=== PATIENT | female | born 1975 | race Caucasian/White ===

== ENCOUNTER 2025-06-21 09:32 | Emergency (ER) | payer BC, SELFPAY ==
[2025-06-21 09:34] VITALS: BP 179/90
[2025-06-21 10:04] LABS: Hematocrit 37.9 % (37.0-47.0); Hemoglobin 12.6 g/dL (12.0-16.0); Mean Corp Hgb Conc. 33.2 g/dL (33.0-37.0); Mean Corpuscular Volume 90.5 fL (81.0-99.0); Nucleated Red Blood Cells % 0 %; Platelet Count 256 10^3/uL (130-400); Red Cell Dist. Width 12.4 % (11.5-14.5)
[2025-06-21 10:26] LABS: ALT (SGPT) 12 U/L (0-35); AST (SGOT) 20 U/L (14-36); Albumin 4.4 g/dl (3.5-5.0); Alkaline Phosphatase 63 U/L (38-126); Blood Urea Nitrogen 15 mg/dl (7-17); Calcium 9.0 mg/dl (8.4-10.2); Carbon Dioxide 24 mmol/L (22-30); Chloride 107 mmol/L (98-107); Glucose 101 mg/dl (70-99); Potassium 4.5 mmol/L (3.5-5.1); Sodium 138 mmol/L (135-145); Total Protein 7.3 g/dl (6.3-8.2); eGFR > 60.00
[2025-06-21 10:31] LABS: Troponin I < 0.012 ng/ml
[2025-06-21 11:15] VITALS: BP 152/87
[2025-06-21 12:00] VITALS: BP 135/81
[2025-06-21] MEDS: NSS 500 IV (12:28)
[2025-06-21] MEDS: ZOFRAN 4 MG IV (12:28)
[2025-06-21] MEDS: ANTIVERT 25 MG PO (12:28)
--- NOTE | 2025-06-21 12:35 | ED.GENMED ---
History of Present Illness
<Mary Gray DO, Resident - Last Filed: 06/21/25 15:36>
General
Chief Complaint: Dizziness
Time Seen by Provider: 06/21/25 11:28
History of Present Illness
History of Present Illness:
Patient is a 49-year-old female past medical history of hypothyroidism on Synthroid, presenting with vertigo. Patient started experiencing vertigo symptoms 2 days ago, unable to turn her head to the side without feeling debilitatingly dizzy and
nauseous. Of note patient was recently started on Bactrim for Bartholin cyst that burst. Patient also recently was started on hydrochlorothiazide by her primary care doc for water retention. Patient has not taken the hydrochlorothiazide for the
last 3 days because the increased urination was irritating her Bartholin gland cyst. Patient has had vertigo once before and this feels very similar.
<Asya Arredondo DO - Last Filed: 06/21/25 13:43>
History of Present Illness
History of Present Illness:
Patient is a 49-year-old female past medical history of hypothyroidism on Synthroid, presenting with vertigo. Patient started experiencing vertigo symptoms 2 days ago, unable to turn her head to the side without feeling debilitatingly dizzy and
nauseous. Of note patient was recently started on Bactrim for Bartholin cyst that burst. Patient also recently was started on hydrochlorothiazide by her primary care doc for water retention. Patient has not taken the hydrochlorothiazide for the
last 3 days because the increased urination was irritating her Bartholin gland cyst. Patient has had vertigo once before and this feels very similar.
Review of Systems
<Mary Gray DO, Resident - Last Filed: 06/21/25 15:36>
Review of Systems
Constitutional: Reports no symptoms
EENT: Reports runny nose
Respiratory: Reports other (Shortness of breath 2 days. Denies shortness of breath now)
Cardiac: Reports no symptoms
ABD/GI: Reports nausea and diarrhea
: Reports other (Decreased frequency of urination)
Musculoskeletal: Reports no symptoms
Skin: Reports no symptoms
Neurological: Reports dizzy
Endocrine: Reports no symptoms
Hematologic/Lymphatic: Reports no symptoms
Psychiatric: Reports no symptoms
Phy Exam
<Mary Gray DO, Resident - Last Filed: 06/21/25 15:36>
General Physical Exam
General Presentation: mild distress
General age: appears stated age
General Skin: warm and dry
General Habitus: normal
General Mental: alert
Eye Exam
Eye Exam: EOMI and other (Did not appreciate any nystagmus)
Cardiovascular Exam
Cardiovascular Exam: regular rate/rhythm
Heart Sounds: normal
Pulmonary Exam
Pulmonary Exam: lungs clear and no respiratory distress
Gastrointestinal Exam
Gastrointestinal Exam: normal bowel sounds, non tender, soft and non distended
Neurological Exam
Neurological Exam: alert and oriented x3
Skin Exam
Skin Exam: normal color and warm/dry
Psychiatric Exam
Psychiatric Exam: normal mood/affect
Course
<Mary Gray DO, Resident - Last Filed: 06/21/25 15:36>
Orders/Labs/Results
Orders:
Orders
06/21/25 09:39
Electrocardiogram (*1) Urgent
Reason for Study: Vertigo / Dizzy
EKG- Treatment ONCE
06/21/25 09:43
Complete Blood Count/With Diff Urgent
Comprehensive Metabolic Panel Urgent
Troponin I Urgent
06/21/25 12:05
Meclizine [Antivert] 25 mg PO NOW STA
Ondansetron Injectable [Zofran] 4 mg IV NOW STA
06/21/25 12:10
0.9% Sodium Chloride 500 ml [Nss] 500 ml IV BOLUS
06/21/25 12:21
Urinalysis Reflex To Culture Urgent
Date Specimen was Collected: 06/21/25
Time Specimen was Collected: 12:01
Urine Microscopic Reflex Cult Urgent
06/21/25 12:28
PT Consult [Pt Eval And Treat] Stat
Treatment: Vertigo
Activity Level: As Tolerated
Abnormal Lab Results
06/21/25 06/21/25
09:43 12:21
WBC 4.4 L 10^3/uL
(4.8-10.8)
RBC 4.19 L 10^6/uL
(4.20-5.40)
Immature Gran % 0.7 H %
(0-0.5)
Neutrophils % 38.7 L %
(42.2-75.2)
Monocytes % 9.9 H %
(1.7-9.3)
Glucose 101 H mg/dl
(70-99)
Ur Occult Blood Reflex 2+ A
(Negative)
06/21/25 09:43
06/21/25 09:43
Vital Signs
Initial and Last Documented VS:
Initial Vital Signs
Temp Pulse Resp BP Pulse Ox
98.4 F 61 18 179/90 100
06/21/25 09:34 06/21/25 09:34 06/21/25 09:34 06/21/25 09:34 06/21/25 09:34
Last Documented Vital Signs
Temp Pulse Resp BP Pulse Ox
98.4 F 62 14 124/80 100
06/21/25 09:34 06/21/25 14:03 06/21/25 14:03 06/21/25 14:03 06/21/25 12:45
<Asya Arredondo DO - Last Filed: 06/21/25 13:43>
Orders/Labs/Results
Orders:
Orders
06/21/25 09:39
Electrocardiogram (*1) Urgent
Reason for Study: Vertigo / Dizzy
EKG- Treatment ONCE
06/21/25 09:43
Complete Blood Count/With Diff Urgent
Comprehensive Metabolic Panel Urgent
Troponin I Urgent
06/21/25 12:05
Meclizine [Antivert] 25 mg PO NOW STA
Ondansetron Injectable [Zofran] 4 mg IV NOW STA
06/21/25 12:10
0.9% Sodium Chloride 500 ml [Nss] 500 ml IV BOLUS
06/21/25 12:21
Urinalysis Reflex To Culture Urgent
Date Specimen was Collected: 06/21/25
Time Specimen was Collected: 12:01
Urine Microscopic Reflex Cult Urgent
06/21/25 12:28
PT Consult [Pt Eval And Treat] Stat
Treatment: Vertigo
Activity Level: As Tolerated
Abnormal Lab Results
06/21/25 06/21/25
09:43 12:21
WBC 4.4 L 10^3/uL
(4.8-10.8)
RBC 4.19 L 10^6/uL
(4.20-5.40)
Immature Gran % 0.7 H %
(0-0.5)
Neutrophils % 38.7 L %
(42.2-75.2)
Monocytes % 9.9 H %
(1.7-9.3)
Glucose 101 H mg/dl
(70-99)
Ur Occult Blood Reflex 2+ A
(Negative)
06/21/25 09:43
06/21/25 09:43
Vital Signs
Initial and Last Documented VS:
Initial Vital Signs
Temp Pulse Resp BP Pulse Ox
98.4 F 61 18 179/90 100
06/21/25 09:34 06/21/25 09:34 06/21/25 09:34 06/21/25 09:34 06/21/25 09:34
Last Documented Vital Signs
Temp Pulse Resp BP Pulse Ox
98.4 F 62 14 124/80 100
06/21/25 09:34 06/21/25 14:03 06/21/25 14:03 06/21/25 14:03 06/21/25 12:45
Consults
<Mary Gray DO, Resident - Last Filed: 06/21/25 15:36>
Consults
Consults for patient: Physical Therapy (Consulted physical therapy for vertigo)
<Mary Gray DO, Resident - Last Filed: 06/21/25 15:36>
MDM/Problems Addressed
Differential Diagnosis Includes:
Vertigo
MDM/Problems Addressed:
EKG shows sinus bradycardia. Troponin negative. Will start patient on 500 cc normal saline bolus, Zofran and meclizine. Will attempt Nino maneuver. Also put consult in for physical therapy.
PT saw patient and agreed that the patient likely has benign paroxysmal positional vertigo. PT tried Nino maneuver treating the right side. PT says patient is feeling a little better, but difficult to tell if it is from the maneuver or the
meclizine. PT suggested outpatient follow-up with vestibular therapy as soon as tomorrow.
<Mary Gray DO, Resident - Last Filed: 06/21/25 15:36>
*Pulse Oximetry
SaO2: 100
Oxygen Mode of Delivery: Room air
Patient hypoxic: no
*EKG
Interpreted by ED Provider?: Yes
Interpretation: normal
Comparison EKG: no comparison EKG present
Rate: bradycardiac
Rhythm: sinus
*Critical Care Note
Total Time (30-74mins, 75-104mins- exclusive of procedures): Not Applicable
ED Attending Note
<Mary Gray DO, Resident - Last Filed: 06/21/25 15:36>
-
Portions of this chart may have been created with voice recognition software.� Occasional wrong word or��sound alike� substitutions may have occurred due to the inherent limitations of voice recognition software.
<Asya Arredondo DO - Last Filed: 06/21/25 13:43>
ED Attending Note
Patient seen and examined by attending physician: Yes
I performed the substantive portion of visit, reviewed & personally made and approve the management plan that is documented in note by myself or MADHAV.: Yes
I performed a history and physical exam of patient and discussed management with resident, I reviewed resident's note and agree with documented findings and plan of care.: Yes
ED Attending Note:
49-year-old female with history of hypothyroidism presenting for dizziness. Patient reports that she has been feeling dizzy for the past 3 days, however felt that it worsened this morning. Notes symptoms upon standing are worse. Certain positions
also make it worse. Reports associated nausea and vomiting. Has had dizziness in the past and symptoms feel similar to prior vertigo. Also notes recent history of a Bartholin cyst, started on Bactrim on Saturday, prior to symptom onset. Also
started on a water pill by her primary care doctor due to concern of fluid retention. Denies visual changes. Denies chest pain or difficulty breathing. Denies additional acute medical complaint
Vital signs are significant for mild hypertension. On exam patient is resting comfortably, no acute distress or discomfort. Benign cardiac and pulmonary exam. No focal neurologic deficits. No significant signs of volume overload. On exam, very
symptomatic upon extraocular movement testing to the right. Suspect BPPV. EKG obtained, nonischemic, no arrhythmia. Labs unremarkable, no electrolyte abnormalities or anemia. Will treat with IV fluids, meclizine and Zofran. Will also consult
with physical therapy
13:40 -patient is reporting improvement on reassessment. Physical therapy at bedside, agree with BPPV. Recommending outpatient vestibular therapy. Will provide prescription. Otherwise feel stable for discharge. Will prescribe meclizine. Feel
stable for discharge. Return precautions discussed.
Discharge Plan
Departure
Patient Disposition: Home (Routine Discharge)
Date of Disposition: 06/21/25
Time of Disposition: 13:56
Patient with high blood pressure during this ER visit?: Yes
Discharge Problem:
Benign paroxysmal positional vertigo
Instructions: Vertigo (a Type of Dizziness) (DC), BLOOD PRESSURE
Prescriptions:
New
meclizine 25 mg tablet
25 mg PO TID PRN (Reason: dizziness) Qty: 15 0RF
ondansetron 4 mg tablet,disintegrating
4 mg PO TIDPRN PRN (Reason: nausea/vomiting) Qty: 5 0RF
Referrals:
Lala Clark CRNP [Family Provider, General]
Activity Restrictions/Additional Instructions:
Please follow outpatient with vestibular therapy for PT as soon as tomorrow- script provided.
Prescription sent for Meclizine- take one tablet up to 3 times per day as needed for vertigo dizziness.
Prescription sent for Zofran put 1 tablet under tongue for nausea as needed every 8 hours.
Interventions
Interventions:
*Risk Screen - Suicide Last Done: 06/21/25 09:34
*General Assessment Last Done: 06/21/25 09:34
*Neglect/Abuse Screening Last Done: 06/21/25 09:34
*ED- Fall Risk Assessment Last Done: 06/21/25 11:20
*ED COVID-19 Vaccine History Last Done: 06/21/25 11:20
*Nursing Disposition Last Done: 06/21/25 14:13
ED- Neurological Assessment Last Done: 06/21/25 12:05
ED- Cardiac Assessment Last Done: 06/21/25 14:13
ED Swallowing Screen Last Done: 06/21/25 12:25
Discharge Date and Time
Discharge Date/Time: 06/21/25 14:15
Print Language: BELARUSIAN
[2025-06-21 13:10] LABS: Urine Character Clear (Clear)
[2025-06-21 13:28] LABS: Urine Red Blood Cell 0-2 /HPF (0-2); Urine White Cell 0-2 /HPF (0-5)
[2025-06-21 14:03] VITALS: BP 124/80
== END 2025-06-21 14:15 | disposition home or self-care (01) ==
LOC: EMR 09:32
PROVIDERS: EMERGENCY PHYSICIAN Student in an Organized Health Care Education/Training Program; FAMILY PHYSICIAN Nurse Practitioner
DX: H81.10 Benign paroxysmal vertigo, unspecified ear (principal); E03.9 Hypothyroidism, unspecified; I10 Essential (primary) hypertension; Z79.890 Hormone replacement therapy; Z79.899 Other long term (current) drug therapy
CPT/HCPCS: 99283; 96374; 96361; 80053; 81003; 81015; 84484; 85025; 93005